=== PATIENT | female | born 1970 ===

== ENCOUNTER 2024-07-27 20:56 | Outpatient (REF) | payer MEDICAID, SELFPAY ==
[2024-07-31 21:35] LABS: Iodine, 24 hr Urine 77 mcg/24 h (75 - 851); Urine Volume 1675 mL
== END 2024-07-27 20:57 | disposition home or self-care (01) ==
LOC: LBN 20:56
PROVIDERS: Visit Provider Naturopath
DX: E01.0 Iodine-deficiency related diffuse (endemic) goiter (principal); E66.3 Overweight; L65.9 Nonscarring hair loss, unspecified; D53.9 Nutritional anemia, unspecified
CPT/HCPCS: 81050; 83018